=== PATIENT | female | born 1990 | race African-American/Black ===

== ENCOUNTER 2020-12-11 02:19 | Emergency (ER) | payer OTHER, SELFPAY ==
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
[2020-12-11 02:59] VITALS: RESP 16; BMI 24.2
--- NOTE | 2020-12-11 03:23 | PC.NURSE ---
PATIENT IS UNCOOPERATIVE WITH CARE, FAMILY MEMBER SISTER AT BEDSIDE. VERY HELPFUL IN ENCOURAGING PATIENT. ABLE TO DRAW ONE TUBE OF BLOOD, INFORMING MD THAT ONLY ONE SPECIMEN WAS COLLECTED. MD WRIGHT IS OKAY WITH WHAT WAS OBTAINED AT THIS TIME. NECKLACES AND OTHER BELONGINGS IN PATIENT BELONGINGS BAG AND GIVEN TO FAMILY MEMBER. PATIENT IS CALMER WITH FAMILY IN ROOM. STILL AGITATED AND UNCOOPERATIVE AT TIMES. SCREAMING OUT FOR OTHER FAMILY MEMBERS AND THROWING HERSELF AROUND THE STRETCHER. STAFF AT BEDSIDE, PATIENT CALLING STAFF NAMES, ATTEMPTING TO KICK THEM AT TIMES. AWAITING LAB RESULTS AND IMAGING RESULTS.
[2020-12-11 03:27] LABS: Glucose Urine UA NEG (NEG); Leukocyte Esterase Urine NEG (NEG); Nitrite Urine NEG (NEG); PH 5.5 (5.0-8.0); Specific Gravity - Urine <= 1.005 (1.005-1.025); Urine Blood NEG (NEG); Urine Ketones NEG (NEG); Urine Protein NEG (NEG-TRACE)
[2020-12-11 03:28] LABS: Appearance Urine CLEAR; Color Urine COLORLESS
[2020-12-11 03:29] LABS: UPreg QC Valid YES; Urine Pregnancy NEGATIVE (NEGATIVE)
[2020-12-11 03:39] LABS: Amphetamine Screen Urine Not Detected (Not Detect); Barbiturates, Urine Not Detected (Not Detect); Benzodiazepines Screen Urine Not Detected (Not Detect); Cannabinoid Screen Urine Not Detected (Not Detect); Cocaine Screen Urine Not Detected (Not Detect); Opiate Screen Urine Not Detected (Not Detect); Phencyclidine Screen Urine Not Detected (Not Detect)
[2020-12-11 03:40] LABS: Ethanol 284 mg/dL
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
[2020-12-11 07:02] LABS: Basophils Percent Auto 0.4 % (0-2); Eosinophils Percent Auto 0.1 % (0-4); Hematocrit 37.3 % (37-47); Imm Gran Abs Auto 0.01 X10*3/uL (0.00-0.03); Imm Gran Pct Auto 0.1 % (0.0-0.4); Lymphocytes Percent Auto 44.3 % (20-40); MANUAL DIFF FLAG NO; Mean Corpuscular HGB Conc 32.2 g/dl (31.0-35.0); Mean Corpuscular Hemoglobin 26.3 pg (27.0-33.0); Mean Corpuscular Volume 81.6 fL (80-98); Monocytes Absolute Auto 0.4 X10*3/uL (0.1-1.2); Monocytes Percent Auto 6.5 % (2-11); Neutrophils Absolute Auto 3.3 X10*3/uL (2.0-8.3); Neutrophils Percent Auto 48.6 % (45-73); Platelet Count 303 X10*3/uL (160-400); Red Blood Count 4.57 X10*6/uL (4.20-5.50); Red Cell Distribution Width 14.9 % (11.0-16.0); White Blood Count 6.8 X10*3/uL (4.8-10.8)
[2020-12-11 07:14] VITALS: BP 100/54; PULSE 100; RESP 14; TEMP 37.1; O2SAT 95
[2020-12-11 07:35] LABS: Alanine Aminotransferase 38 U/L (0-31); Albumin Level 4.1 g/dL (3.5-5.0); Alkaline Phosphatase 65 U/L (39-117); Anion Gap 17 (12-20); Aspartate Amino Transferase 40 U/L (5-31); Bilirubin Total 0.2 mg/dL (0.0-1.0); Blood Urea Nitrogen 14 mg/dL (9-16); Calcium 8.7 mg/dL (8.4-10.2); Carbon Dioxide 20 mmol/L (22-29); Chloride 109 mmol/L (96-108); Creatinine Clr Calc Pharmacy 100.8; Estimated Glomerular Filt Rate > 60; Glucose Random 90 mg/dL (60-115); Sodium 142 mmol/L (135-145); Total Protein 7.1 g/dL (6.5-8.0)
--- NOTE | 2020-12-11 07:47 | PC.NURSE ---
Pt sleeping/resting in bed with eyes closed. Easily awoke w/ verbal stimuli for VS, WNL. Awaiting transport for pt, per prior RN sister is to pick pt up.
[2020-12-11] MEDS: Diphth,Pertus(ACell),Tet Adult 0.5 ML SYRINGE IM (08:19)
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
[2020-12-11 10:56] VITALS: BP 134/75; PULSE 87; RESP 16; TEMP 36.6; O2SAT 99
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
== END 2020-12-11 11:28 | disposition home or self-care (01) ==
PROVIDERS: Student in an Organized Health Care Education/Training Program; Emergency Provider Emergency Medicine
DX: S19.9XXA Unspecified injury of neck, initial encounter (principal); M54.2 Cervicalgia; R51.9 Headache, unspecified; F10.129 Alcohol abuse with intoxication, unspecified; V43.52XA Car driver injured in collision with other type car in traffic accident, initial encounter; Y93.9 Activity, unspecified; Y92.410 Unspecified street and highway as the place of occurrence of the external cause; Y99.9 Unspecified external cause status; Y90.8 Blood alcohol level of 240 mg/100 ml or more; Z79.899 Other long term (current) drug therapy
CPT/HCPCS: 36415; 70450; 72125; 80053; 80307; 80320; 81003; 81025; 85025; 90471; 90715; 99284

== ENCOUNTER 2021-05-14 04:41 | Emergency (ER) | payer OTHER, SELFPAY ==
--- NOTE | ~2021-05-14 | XR_ITS ---
EXAMINATION: XR CHEST CLINICAL INFORMATION: Chest pain, shortness of breath, rule out pneumonia COMPARISON: None TECHNIQUE: 2 views of the chest were obtained. FINDINGS: The lungs are clear with no focal consolidation. No evidence of pneumothorax, pulmonary edema, or pleural effusions. The cardiomediastinal silhouette is unremarkable. No acute osseous findings. XR/XR chest 2V IMPRESSION: No acute cardiopulmonary findings.
[2021-05-14 04:46] VITALS: BP 142/89; PULSE 108; RESP 20; TEMP 37; O2SAT 98; BMI 28.3
--- NOTE | 2021-05-14 04:58 | ECG_ITS ---
Test Reason : SOB Blood Pressure : / mmHG Vent. Rate : 101 BPM Atrial Rate : 101 BPM P-R Int : 146 ms QRS Dur : 080 ms QT Int : 324 ms P-R-T Axes : 048 037 020 degrees QTc Int : 420 ms Sinus tachycardia Nonspecific T wave abnormality Abnormal ECG No previous ECGs available Referred By: Aayush uDque Electronically Signed By:DEMOND MELTON
[2021-05-14] MEDS: LORazepam 2 MG/ML VIAL 1 MG IVPUSH (05:11)
[2021-05-14 05:21] LABS: MANUAL DIFF FLAG NO
[2021-05-14 05:22] LABS: Basophils Percent Auto 0.4 % (0-2); Eosinophils Percent Auto 0.4 % (0-4); Hematocrit 34.7 % (37-47); Hemoglobin 11.1 g/dl (12.0-16.0); Imm Gran Abs Auto 0.01 X10*3/uL (0.00-0.03); Imm Gran Pct Auto 0.1 % (0.0-0.4); Lymphocytes Absolute Auto 3.2 X10*3/uL (1.2-4.9); Lymphocytes Percent Auto 43.4 % (20-40); Mean Corpuscular Hemoglobin 25.4 pg (27.0-33.0); Mean Corpuscular Volume 79.4 fL (80-98); Mean Platelet Volume 10.1 fL (9.4-12.3); Monocytes Absolute Auto 0.8 X10*3/uL (0.1-1.2); Monocytes Percent Auto 10.4 % (2-11); Neutrophils Absolute Auto 3.3 X10*3/uL (2.0-8.3); Neutrophils Percent Auto 45.3 % (45-73); Platelet Count 289 X10*3/uL (160-400); Red Blood Count 4.37 X10*6/uL (4.20-5.50); White Blood Count 7.3 X10*3/uL (4.8-10.8)
[2021-05-14 05:32] LABS: D Dimer 274 NG/ML
[2021-05-14 05:41] LABS: Alanine Aminotransferase 15 U/L (0-31); Albumin Level 4.2 g/dL (3.5-5.0); Alkaline Phosphatase 64 U/L (39-117); Anion Gap 14 (12-20); Aspartate Amino Transferase 16 U/L (5-31); Bilirubin Total 0.3 mg/dL (0.0-1.0); Blood Urea Nitrogen 11 mg/dL (9-16); Calcium 9.9 mg/dL (8.4-10.2); Carbon Dioxide 22 mmol/L (22-29); Chloride 107 mmol/L (96-108); Creatinine Clr Calc Pharmacy 82.5; Estimated Glomerular Filt Rate > 60; Glucose Random 102 mg/dL (60-115); Potassium 3.8 mmol/L (3.3-5.1); Sodium 139 mmol/L (135-145); Total Protein 7.2 g/dL (6.5-8.0)
[2021-05-14 05:44] LABS: Troponin-I High Sensitivity < 3.5 ng/L (<3.5-17.0)
[2021-05-14 05:48] LABS: COVID-19 Test Negative (Negative)
--- NOTE | 2021-05-14 07:00 | ED.GENADULT ---
HPI - General Adult General Chief complaint: General Medical Stated complaint: anxiety/sob/weakness Time Seen by Provider: 05/14/21 04:51 History of Present Illness HPI narrative: 31-year-old female who presents emergency department for evaluation of sore throat, chest pain, shortness of breath, lightheadedness, dizziness and numbness. The patient states that she has had intermittent sore throat since February 2021 and she has been tested for strep throat this has been negative. She states that last night she developed pain in her throat, she describes as an intermittent, sharp pain located in the right side of her throat, worse with swallowing. She states that she then developed tightness in her chest and shortness of breath, she felt lightheaded dizzy and developed numbness in her face. The patient states that her symptoms got worse this morning and she called an ambulance and was transported to the emergency department for evaluation. On presentation, the patient states she was feeling very anxious. Related Data Previous Rx's Medication Instructions Recorded ferrous sulfate 325 mg (65 mg 325 mg PO TID 30 Days #90 tab 05/14/21 iron) tablet Allergies Allergy/AdvReac Type Severity Reaction Status Date / Time Unable to Assess Allergy Unverified 12/11/20 03:03 Review of Systems Review of Systems: Yes all other systems are reviewed and are negative [facility] Past Medical History [facility] Narrative: Past medical history: Depression, anxiety. Past surgical history: None. Social history: The patient denies tobacco use, she does drink alcohol occasionally, she denies drug use. Social History Social History Alcohol intake: unknown Advance Directives: No Advance Directives Information Provided: No Patient : No Physical Exam Vital Signs: Vital Signs: Last Vital Signs Temp 98.6 F 05/14/21 04:46 Pulse 108 H 05/14/21 04:46 Resp 20 05/14/21 04:46 BP 142/89 H 05/14/21 04:46 Pulse Ox 98 05/14/21 04:46 Body Mass Index 28.3 Const: Other: Very anxious appearing female patient, answers all questions appropriately. HENMT: Head: Yes normal to inspection, Yes normocephalic and Yes atraumatic Ears: external ears normal General nose exam: Normal external nose present Face and sinus: Yes normal facial exam Mouth: Normal oral and palatal mucosa present Throat: Yes posterior oropharynx normal Eyes: General: appearance normal, both eyes and all related structures Pupils: Equal, round and reactive pupils present Neck: Neck: Yes normal visual inspection, Yes no lymphadenopathy, Yes trachea midline and Yes supple Chest: Chest palpation & inspection: normal inspection of the chest and normal palpation of entire chest wall Resp: Effort & Inspection: normal respiratory effort and able to speak in complete sentences Auscultation: clear to auscultation bilaterally Cardio: Rate: regular rate Rhythm: regular rhythm Heart sounds: S1 normal heart sound present, S2 normal heart sound present and no murmurs GI: Inspection: Yes normal to inspection Palpation (GI): Soft to palpation, nontender and no guarding Auscultation: normal bowel sounds : General: Yes no CVA tenderness Back/Spine/Pelvis: Back: no CVA tenderness Skin: General skin exam: no rashes or lesions noted Neuro: Cranial nerves: Yes CN's II-XII intact bilaterally and Yes Equal, round and reactive pupils present Cognition (Neuro): normal cognition Motor exam (neuro): 5/5 motor strength present throughout Extrem: General: Yes normal to inspection Psych: Appearance: grossly normal Speech and movement: Normal speech and movement present Affect: Anxious affect present Attitude: cooperative Thought process: Normal thought process present Thought content: Normal thought content present Course Course Course Narrative: 31-year-old female with multiple complaints including sore throat, chest pain, shortness of breath, numbness, dizziness and feeling anxious. Vital signs did reveal an elevated blood pressure of 142/89 with an elevated pulse of 108 and respiratory rate of 20. The patient's exam was otherwise unremarkable. The was given Ativan 1 mg IV. The patient's laboratory evaluation did reveal a slight elevation in her D-dimer of 274 but I do not think that she has a PE as the cause of her symptoms. Patient was also found to have a microcytic anemia with a H&H of 11 and 34 with an MCV of 79. Patient's COVID 19 test was negative, chest x-ray was negative and 12 EKG was unremarkable. The patient's presentation findings are consistent with anxiety/panic attack. She was given Ativan 1 mg IV with complete resolution of her symptoms. She was also given ibuprofen 600 mg orally for her throat pain. The patient feels significantly better after this treatment. I did discuss her laboratory values with her. The patient will be discharged home. Medical Decision Making Lab Data Result diagrams: 05/14/21 05:15 05/14/21 05:15 Labs: Lab Results 05/14/21 05/14/21 05/14/21 Range/Units 05:15 05:15 05:15 WBC 7.3 (4.8-10.8) X10*3/uL RBC 4.37 (4.20-5.50) X10*6/uL Hgb 11.1 L (12.0-16.0) g/dl Hct 34.7 L (37-47) % MCV 79.4 L (80-98) fL MCH 25.4 L (27.0-33.0) pg MCHC 32.0 (31.0-35.0) g/dl RDW 16.0 (11.0-16.0) % Plt Count 289 (160-400) X10*3/uL MPV 10.1 (9.4-12.3) fL Immature Gran % (Auto) 0.1 (0.0-0.4) % Neut % (Auto) 45.3 (45-73) % Lymph % (Auto) 43.4 H (20-40) % Sab[place] % (Auto) 10.4 (2-11) % Eos % (Auto) 0.4 (0-4) % Baso % (Auto) 0.4 (0-2) % Lymph # (Auto) 3.2 (1.2-4.9) X10*3/uL Sabine # (Auto) 0.8 (0.1-1.2) X10*3/uL Eos # (Auto) 0.0 (0.0-0.4) X10*3/uL Baso # (Auto) 0.0 (0.0-0.2) X10*3/uL Abs Immat Gran (auto) 0.01 (0.00-0.03) X10*3/uL Absolute Neuts (auto) 3.3 (2.0-8.3) X10*3/uL Absolute Nucleated RBC 0.000 (0.0-0.012) X10*3/uL Nucleated RBC % (auto) 0.0 (0.0-0.2) /100WBC D-Dimer 274 NG/ML Sodium 139 (135-145) mmol/L Potassium 3.8 (3.3-5.1) mmol/L Chloride 107 (96-108) mmol/L Carbon Dioxide 22 (22-29) mmol/L Anion Gap 14 (12-20) BUN 11 (9-16) mg/dL Creatinine 0.82 (0.5-1.4) mg/dL Estim Creat Clear Calc 82.5 Estimated GFR > 60 Random Glucose 102 (60-115) mg/dL Calcium 9.9 D (8.4-10.2) mg/dL Total Bilirubin 0.3 (0.0-1.0) mg/dL AST 16 D (5-31) U/L ALT 15 (0-31) U/L Alkaline Phosphatase 64 (39-117) U/L Troponin I High Sens (<3.5-17.0) ng/L Total Protein 7.2 (6.5-8.0) g/dL Albumin 4.2 (3.5-5.0) g/dL COVID-19 ([facility]) (Negative) COVID-19 Clin Com 05/14/21 05/14/21 Range/Units 05:15 05:15 WBC (4.8-10.8) X10*3/uL RBC (4.20-5.50) X10*6/uL Hgb (12.0-16.0) g/dl Hct (37-47) % MCV (80-98) fL MCH (27.0-33.0) pg MCHC (31.0-35.0) g/dl RDW (11.0-16.0) % Plt Count (160-400) X10*3/uL MPV (9.4-12.3) fL Immature Gran % (Auto) (0.0-0.4) % Neut % (Auto) (45-73) % Lymph % (Auto) (20-40) % Sab[place] % (Auto) (2-11) % Eos % (Auto) (0-4) % Baso % (Auto) (0-2) % Lymph # (Auto) (1.2-4.9) X10*3/uL Sabine # (Auto) (0.1-1.2) X10*3/uL Eos # (Auto) (0.0-0.4) X10*3/uL Baso # (Auto) (0.0-0.2) X10*3/uL Abs Immat Gran (auto) (0.00-0.03) X10*3/uL Absolute Neuts (auto) (2.0-8.3) X10*3/uL Absolute Nucleated RBC (0.0-0.012) X10*3/uL Nucleated RBC % (auto) (0.0-0.2) /100WBC D-Dimer NG/ML Sodium (135-145) mmol/L Potassium (3.3-5.1) mmol/L Chloride (96-108) mmol/L Carbon Dioxide (22-29) mmol/L Anion Gap (12-20) BUN (9-16) mg/dL Creatinine (0.5-1.4) mg/dL Estim Creat Clear Calc Estimated GFR Random Glucose (60-115) mg/dL Calcium (8.4-10.2) mg/dL Total Bilirubin (0.0-1.0) mg/dL AST (5-31) U/L ALT (0-31) U/L Alkaline Phosphatase (39-117) U/L Troponin I High Sens < 3.5 (<3.5-17.0) ng/L Total Protein (6.5-8.0) g/dL Albumin (3.5-5.0) g/dL COVID-19 ([facility]) Negative (Negative) COVID-19 Clin Com See Note ECG Data Attestation: I personally reviewed and interpreted this ECG as follows: Interpretation: 0524: Sinus tachycardia with a rate of 101, normal AL interval, QRS duration, QTC interval, no ST segment elevation, no ST segment depression, inverted T-wave in lead 2 and the 1, no PACs, no PVCs. Discharge Plan Discharge Clinical Impression: Chest pain, Pain in throat, Anxiety attack Patient Disposition: Home, Self-Care Instructions: Iron Deficiency Anemia (ED), Panic Attack (ED) Additional Instructions: Your chest x-ray was normal. Your 12 EKG was normal. Your laboratory evaluation was unremarkable except for iron deficient anemia. I am prescribing an iron supplement, ferrous sulfate 325 mg pills, take 1 pill 3 times a day for 1 month. You should follow-up with her doctor for recheck of your anemia and 1 month, you may need to be on iron supplements for at least 3 months or longer. Your presentation was consistent with a an anxiety/panic attack. You should follow-up with your doctor to discuss further treatment your anxiety/panic attacks. Prescriptions: New ferrous sulfate 325 mg (65 mg iron) tablet 325 mg PO TID 30 Days Qty: 90 RF: 0
[2021-05-14] MEDS: Ibuprofen 600 MG TABLET PO (07:07)
[2021-05-14 07:08] VITALS: BP 114/82; PULSE 93; RESP 18; TEMP 36.7; O2SAT 100
== END 2021-05-14 07:19 | disposition home or self-care (01) ==
PROVIDERS: Emergency Provider Emergency Medicine Emergency Medical Services
DX: R07.9 Chest pain, unspecified (principal); R07.0 Pain in throat; F41.1 Generalized anxiety disorder; F43.0 Acute stress reaction; Z20.822 Contact with and (suspected) exposure to COVID-19; Z79.899 Other long term (current) drug therapy
CPT/HCPCS: 36415; 71046; 80053; 84484; 85025; 85379; 87635; 93005; 96374; 99284; J2060